=== PATIENT | male | born 1970 | race Caucasian/White ===

== ENCOUNTER 2023-10-12 00:07 | Emergency (ER) | payer BC, MEDICAID, OTHER ==
[~2023-10-12] VITALS: Ht 170.2 cm; Wt 86.2 kg
[~2023-10-12 00:07] MED LIST: [UNRECOGNIZED DRUG - REMARK]
[2023-10-12] MEDS ORDERED: hydrALAZINE HCL 20 MG/1 ML VIAL ONE ×2 (01:19→03:02)
[2023-10-12] MEDS: hydrALAZINE HCL 20 MG/1 ML VIAL IV ONE (01:28)
[2023-10-12 01:37] LABS: DIFFERENTIAL COMMENT 0; EOSINOPHILS # (AUTO) 0.3 K/uL (0.0-0.7); EOSINOPHILS % (AUTO) 4.5 % (0.0-7.0); HEMATOCRIT 41.4 % (36.7-47.1); HEMOGLOBIN 14.3 g/dL (12.5-16.3); LYMPHOCYTES # (AUTO) 2.2 K/uL (0.8-4.8); LYMPHOCYTES % (AUTO) 36.5 % (20.5-51.5); MEAN CORPUSCULAR HEMOGLOBIN 31.3 uug (23.8-33.4); MEAN CORPUSCULAR HGB CONC 35 g/dL (32.5-36.3); MEAN CORPUSCULAR VOLUME 90.4 fL (73.0-96.2); MONOCYTES # (AUTO) 0.7 K/uL (0.1-1.30); NEUTROPHILS # (AUTO) 2.8 K/uL (1.8-8.9); PLATELET COUNT (AUTO) 219 K/uL (152-348); RED BLOOD CELL COUNT(AUTO) 4.58 MIL/uL (4.06-5.63); RED CELL DISTRIBUTION WIDTH 13.9 % (12.1-16.2)
[2023-10-12 01:39] LABS: CALCIUM 8.9 mg/dL (8.5-10.1); CREATININE 0.7 mg/dL (0.6-1.3); POTASSIUM 3.3 mmol/L (3.5-5.1)
[2023-10-12 01:54] LABS: ALBUMIN 3.9 g/dL (3.4-5.0); BILIRUBIN,TOTAL 0.3 mg/dL (0.2-1.0); TOTAL PROTEIN, SERUM 7.9 g/dL (6.4-8.2)
[2023-10-12 04:35] VITALS: BP 140/94; TEMP 98; O2SAT 98
[2023-10-12] MEDS ORDERED: CLON0.1T PO (05:29)
== END 2023-10-12 04:36 | disposition left against medical advice (07) ==
LOC: ER 00:15
DX: I10 Essential (primary) hypertension (principal); E11.9 Type 2 diabetes mellitus without complications; Z98.890 Other specified postprocedural states; Z79.899 Other long term (current) drug therapy
CPT/HCPCS: 99285; 96374; 70450; 71045; 80053; 83880; 85025; 84484; 36415; 93005; J0360 ×2; A4606; A4663

== ENCOUNTER 2024-12-30 01:38 | Emergency (ER) | payer MEDICAID ==
[~2024-12-30] VITALS: Ht 170.2 cm; Wt 83.9 kg
[~2024-12-30 01:38] MED LIST changes: +CLON0.1T PO
[2024-12-30] MEDS ORDERED: ACETAMINOPHEN 500 MG TABLET ONE (02:18)
[2024-12-30 02:27] VITALS: BP 196/124
[2024-12-30 02:27] LABS: *BILIRUBIN,URIN NEGATIVE (NEGATIVE); *BLOOD, URINE NEGATIVE (NEGATIVE); *CLARITY,URINE CLEAR (CLEAR); *COLOR,URINE YELLOW (YELLOW); *KETONES,URINE NEGATIVE (NEGATIVE); *PROTEIN,URINE NEGATIVE (NEGATIVE); *UROBILINOGEN,URINE 0.2 E.U./dl (NORMAL); LEUKOCYTE ESTERASE ,URINE NEGATIVE (NEGATIVE); NITRITE, URINE NEGATIVE (NEGATIVE); UGLUCOSE NEGATIVE (NEGATIVE)
[2024-12-30] MEDS: ACETAMINOPHEN 500 MG TABLET PO ONE (02:27)
[2024-12-30 02:46] VITALS: O2SAT 97
== END 2024-12-30 03:01 | disposition home or self-care (01) ==
LOC: ER 01:45
DX: I10 Essential (primary) hypertension (principal); F17.210 Nicotine dependence, cigarettes, uncomplicated; R51.9 Headache, unspecified; Z88.7 Allergy status to serum and vaccine
CPT/HCPCS: 99284; 96374; 99406; 81003; 93005; J0360; A4606; A4663; A9150